=== PATIENT | male | born 1940 | race Caucasian/White ===

== ENCOUNTER 2017-12-11 08:20 | Day surgery (SDC) | payer MEDICARE, OTHER ==
[2017-12-10 15:08] LABS: BASOPHILS 0.1 % (0-2); HEMATOCRIT 37.7 % (42.0-54.0); HEMOGLOBIN 12.5 g/dL (13.5-17.5); IMMATURE GRANULOCYTES 0.2 % (0-5); LYMPHOCYTES 24.3 % (15-50); MCH 33.3 pg (26.0-34.0); MCHC 33.2 g/dL (31.0-37.0); MCV 100.5 fL (80.0-100.0); MEAN PLATELET VOLUME 10.4 fL (7.4-10.4); NEUTROPHILS 64.4 % (40-80); PLATELET COUNT 133 10x3/uL (130-400); RBC 3.75 10x6/uL (4.20-6.10); RDW 13.2 % (11.5-14.5); WBC 8.1 10x3/uL (4.8-10.8)
[~2017-12-11] VITALS: Ht 172.7 cm; Wt 90.7 kg
--- NOTE | ~2017-12-11 | OP ---
PATIENT NAME: SVEN PIERRE MEDICAL RECORD: [id number] :38 LOCATION:[facility] ADMISSION DATE: SURGEON: LUIS BELTRAN DPM DATE OF OPERATION: 12/11/2017 PREOPERATIVE DIAGNOSIS: Gouty tophi, left third toe. POSTOPERATIVE DIAGNOSIS: Gouty tophi, left third toe. PROCEDURE: Incision and drainage of all gouty tophi and devitalized tissue, left third digit. ANESTHESIA: General with local infiltrate, 5 cc total on the left third digit. HEMOSTASIS: Left ankle tourniquet at 250 mmHg. PREOPERATIVE DETAILS: The patient was taken to the OR and placed on the operating table in a supine position. This was followed by induction of general anesthesia and infiltration of local anesthetic. The left extremity was then prepped and draped in usual aseptic technique followed by exsanguination and inflation of tourniquet. A 15 blade was used to create a transverse incision over the dorsal aspect of the DIPJ of the left third digit. Dissection then involved freeing all the gouty tophaceous deposits on the dorsal aspect of the DIPJ area. They were removed. Some was sent to pathology for gross and micro identification. Once all the gouty tophi was removed, the wound was flushed and the skin was closed with 4-0 Rapide in a simple interrupted technique followed by Dermabond, Adaptic, 4 x 4 and conform were used to dress the wound followed by Coban. Tourniquet was deflated. POSTOPERATIVE DETAILS: The patient tolerated the procedure well and left the OR with vital signs stable and vascular status at preoperative levels. The patient was transported to recovery per anesthesia in stable condition. TRANSINT:[id number] Voice Confirmation ID: [id number] DOCUMENT ID: [id number] LUIS BELTRAN DPM at 1025 CC: [id number] DICTATION DATE: 12/11/17 1354 CUT PRESS OPERATOR: 12/11/17 1350 [facility] 12/11/[address] [address]
[~2017-12-11 08:20] MED LIST: CILOSTAZOL50 MG PO; ISOSORBIDE MONO30 M1 PO; TOPROL XL25 MG; ZOCOR40 MG PO
[2017-12-11 08:40] VITALS: BP 129/84; Ht 172.7 cm; Wt 90.7 kg
== END 2017-12-11 16:45 | disposition home or self-care (01) ==
LOC: D.OPS 08:20 → D.PAN 10:30 → D.OPS 13:00 → D.PAN 12-25 07:00 → D.OPS 12-25 07:00
PROVIDERS: Anesthesiology
DX: M1A.0721 Idiopathic chronic gout, left ankle and foot, with tophus (tophi) (principal); Z01.812 Encounter for preprocedural laboratory examination

== ENCOUNTER 2018-06-24 06:11 | Inpatient (IN) | payer MEDICARE, OTHER ==
[~2018-06-24] VITALS: Ht 172.7 cm; Wt 89.1 kg
--- NOTE | ~2018-06-24 | HEMODYNAMI ---
PATIENT:SVEN PIERRE MEDICAL RECORD: [id number] : 38 LOCATION:[address] ADMISSION DATE: 06/24/18 Generatedon:06/25/20189:02 Patient name: SVEN PIERRE Patient #: [id number] SSN: DO B: 1940 Date of study: 06/25/2018 Page: Of Hemodynamic Procedure Report Patient Data Patient Demographics Procedure consent was obtained First Name: SVEN Gender: Male Last Name: IGNACIO : 1940 Middle Initial: T Age: 78 year(s) Patient #: [id number] Race: Additional ID: [id number] Contact details Address: [address] [place] [address] State: [place] City: [facility] Zip code: [address] Admission Admission Data Admission Date: 06/24/2018 Admission Time: 6:52 Room #: 2119 Procedure Procedure Types Cath Procedure Diagnostic Procedure LHC LH w/Coronaries Sedation Charges Moderate Sedation up to 15 minutes Procedure Description Procedure Date Procedure Date: 06/25/2018 Procedure Start Time: 8:34 Procedure End Time: 8:59 Procedure Staff Name Function Kevin Croft MD Performing Physician Farhana Rogers RT Monitor Madhuri Baker RT Scrub Aguila Herzog RN Nurse Procedure Data Cath Procedure Fluoroscopy Diagnostic fluoroscopy Total fluoroscopy Time: 6.6 time: 6.6 min min Diagnostic fluoroscopy Total fluoroscopy dose: dose: 1046 mGy 1046 mGy Contrast Material Contrast Material Type Amount (ml) Isovue 300 87 Entry Location Entry Primary Successful Side Size Upsize Upsize Entry Closure Succes sful Closure Location (Fr) 1 (Fr) 2 (Fr) Remarks Device Remarks Femoral Right 5 Fr 6 Fr 7 Fr Exoseal artery Short Long Estimated blood loss: 5 ml Diagnostic catheters Device Type Used For End Catheter Placement MULTIPACK Pigtail 5 Fr Left Coronary catheter Angiography MULTIPACK JL 4.0 5Fr Left Coronary catheter Angiography MULTIPACK 3DRC 5Fr Right Coronary catheter Angiography Procedure Complications No complications Procedure Medications Medication Administration Route Dosage 0.9% NaCl I.V. 100 ml/hr Oxygen etCO2 Nasal cannula 2 l/min Heparin Flush Bag added to field 2 bags (1000units/500ml NS) Lidocaine 2% added to field 20 Oxygen NRB 15 l/min Versed I.V. 1 mg Fentanyl I.V. 25 mcg Fentanyl I.V. 25 mcg Heparin Bolus I.V. 4000 units Hemodynamics Rest Heart Rate: 89 (bpm) Snapshots Pre Cath Intra NCS Post Cath Vital Signs Time Heart Resp SPO2 etCO2 NIBP (mmHg) Rhythm Pain Sedation Rate (ipm) (%) (mmHg) Status Level (bpm) 8:09:51 82 24 94 9.7 126/69(103) A-Fib 0 (11) 10(A) , No pain 8:14:03 85 25 93 0 120/70(92) A-Fib 0 (11) 10(A) , No pain 8:18:14 83 21 92 0 109/60(86) A-Fib 0 (11) 10(A) , No pain 8:22:18 85 20 92 0 103/75(84) A-Fib 0 (11) 10(A) , No pain 8:26:22 88 36 97 0 120/67(89) A-Fib 0 (11) 10(A) , No pain 8:30:30 81 21 99 0 113/74(90) A-Fib 0 (11) 10(A) , No pain 8:34:32 80 27 99 0 123/81(90) A-Fib 0 (11) 10(A) , No pain 8:38:39 87 23 99 0 123/75(96) A-Fib 0 (11) 10(A) , No pain 8:42:49 81 24 99 0 113/70(83) A-Fib 0 (11) 10(A) , No pain 8:46:53 81 18 98 0 116/77(91) A-Fib 0 (11) 10(A) , No pain 8:50:57 96 16 99 0 115/81(101) A-Fib 0 (11) 10(A) , No pain 8:55:05 88 27 99 0 118/71(95) A-Fib 0 (11) 10(A) , No pain 8:59:10 87 26 98 0 125/78(111) A-Fib 0 (11) 10(A) , No pain Medications Time Medication Route Dose Verified Delivered Reason Notes Effectiveness by by 8:11:07 0.9% NaCl I.V. 100 Aguila Aguila Per physician ml/hr Rosenda Herzog RN RN 8:11:23 Oxygen etCO2 2 Aguila Aguila Per physician Nasal l/min Rosenda Herzog cannula RN RN 8:11:54 Heparin Flush added 2 Aguila Aguila used for Bag to bags Rosenda Herzog procedure (1000units/500ml field RN RN NS) 8:12:05 Lidocaine 2% added 20ml Aguila Aguila for local to vial Rosenda Herzog anesthetic field RN RN 8:27:38 Oxygen NRB 15 Aguila Aguila for low 02 sats l/min Rosenda Herzog RN RN 8:30:26 Versed I.V. 1 mg Aguila Aguila for sedation Rosenda Herzog RN RN 8:30:37 Fentanyl I.V. 25 Aguila Aguila for sedation mcg Rosenda Herzog RN RN 8:35:04 Fentanyl I.V. 25 Aguila Aguila for sedation mcg Rosenda Herzog RN RN 8:49:14 Heparin Bolus I.V. 4000 Aguila Aguila for units Rosenda Herzog anticoagulation RN supervisor special services Log Time Note 7:34:46 Informed consent obtained and on chart 7:34:50 Diagnostic Cath Status : Elective 7:35:13 Farhana Rogers RT(R) sent for patient. Start room use. 7:35:14 Time tracking: Regular hours (M-F 7:00 - 5:00) 7:35:18 Plan of Care:Hemodynamics will remain stable., Cardiac rhythm will remain stable., Comfort level will be maintained., Respiratory function will remain adequate., Patient/ family verbilizes understanding of procedure., Procedure tolerated without complication., Recovers from procedure without complications.. 7:59:28 Patient received from PCU to CCL 2 Alert and oriented. Tansferred to table in Supine position. 7:59:29 Warm blankets applied, and diamante hugger turned on for patient comfort. 7:59:29 Correct patient and procedure confirmed by team. 7:59:30 ECG and BP/O2 sat monitors applied to patient. 7:59:32 Full Disclosure recording started 8:08:49 Baseline sample Acquired. 8:08:49 Vital chart was started 8:08:54 Rhythm: sinus rhythm 8:09:05 H&P Date Dictated: 06/25/2018 New H&P dictated by physician.. 8:09:06 Pre-procedure instructions explained to patient. 8:09:07 Pre-op teaching completed and patient verbalized understanding. 8:09:09 Family in waiting room. 8:09:10 Patient NPO since Midnight. 8:09:40 Is the patient allergic to Iodine/contrast media? No. 8:09:42 Was the patient premedicated? No 8:09:49 Is patient on blood thinner?Yes 8:09:53 ACC The patient was administered the following blood thiners within the last 24 hours: ACCPlavix 8:10:04 Patient diabetic? No. 8:10:08 Previous problem with sedation/anesthesia? No ? 8:10:09 Snore? Yes 8:10:10 Sleep apnea? No 8:10:11 Deviated septum? No 8:10:12 Opens mouth fully? Yes 8:10:12 Sticks out tongue? Yes 8:10:14 Airway obstruction? No ? 8:10:17 Dentures? No ? 8:10:22 Pre procedure: right dorsailis pedis pulse 2+ Normal; easily identifiable; not easily obliterated 8:10:24 Pre procedure: left dorsailis pedis pulse 2+ Normal; easily identifiable; not easily obliterated 8:10:27 Patient pain scale 0/10 ?. 8:10:32 IV patent on arrival in left forearm with 0.9% NaCl at [facility]. 8:10:34 Lab results completed and on chart. 8:10:37 Right groin area was prepped with chlora-prep and draped in sterile fashion 8:10:38 Alarms reviewed by R. N. 8:10:39 Sharps counted by scrub and verified by R.N. 8:11:07 0.9% NaCl 100 ml/hr I.V. was administered by Aguila Herzog RN; Per physician; 8:11:23 Oxygen 2 l/min etCO2 Nasal cannula was administered by Aguila Herzog RN; Per physician; 8:11:54 Heparin Flush Bag (1000units/500ml NS) 2 bags added to field was administered by Aguila Herzog RN; used for procedure; 8:12:05 Lidocaine 2% 20ml vial added to field was administered by Aguila Herzog RN; for local anesthetic; 8:17:21 Zero performed for pressure channel P1 8:27:38 Oxygen 15 l/min NRB was administered by Aguila Herzog RN; for low 02 sats; 8:28:21 Physician arrived 8:28:21 --------ALL STOP TIME OUT------ 8:28:22 Final Timeout: patient, procedure, and site verified with staff and physician. All members of the team are in agreement. 8:28:24 Right groin site verified by team. 8:28:26 Physical assessment completed. ASA score P 2 - A patient with mild systemic disease as per Kevin Croft MD. 8:28:31 Sedation plan: IV Moderate Sedation Medication:Versed, Fentanyl 8:28:40 Use device set Femoral Dx 8:28:41 ACIST Syringe (08710) opened to sterile field. 8:28:41 Bag Decanter (2002S) opened to sterile field. 8:28:42 Medline Cath Pack (PSLM00503) opened to sterile field. 8:28:42 DIAGNOSTIC WIRE .035 260cm J wire (303046) opened to sterile field. 8:28:44 ACIST Hand Control (00473) opened to sterile field. 8:28:44 ACIST Manifold (42266) opened to sterile field. 8:28:45 DIAGNOSTIC Multipack 5Fr catheter set (JS0452) opened to sterile field. 8:28:45 Tegaderm 4 x 4 (1626W) opened to sterile field. 8:28:46 SHEATH 5FR [place] (ICP378) opened to sterile field. 8:30:26 Versed 1 mg I.V. was administered by Aguila Herzog RN; for sedation; 8:30:37 Fentanyl 25 mcg I.V. was administered by Aguila Herzog RN; for sedation; 8:34:44 Procedure started. 8:34:47 Local anesthetic to right femoral artery with Lidocaine 2% by Kevin Croft MD.INITIAL ACCESS ONLY 8:34:58 A 5 Fr sheath was inserted into the Right Femoral artery 8:35:04 Fentanyl 25 mcg I.V. was administered by Aguila Herzog RN; for sedation; 8:39:18 A MULTIPACK Pigtail 5 Fr catheter was advanced over the wire and used for Left Coronary Angiography. 8:41:14 pigtail removedl; unable to cross valve 8:41:19 A MULTIPACK JL 4.0 5Fr catheter was advanced over the wire and used for Left Coronary Angiography. 8:42:27 LCA angiography performed. 8:42:30 Injector settings: Ml/sec: 3, Volume: 6, 8:43:49 Catheter removed. 8:43:55 A MULTIPACK 3DRC 5Fr catheter was advanced over the wire and used for Right Coronary Angiography. 8:45:14 Catheter removed. 8:45:37 SHEATH 6FR [place] (WZI131) opened to sterile field. 8:45:44 INFLATOR Merit BasixCompak (WZ7356) opened to sterile field. 8:45:55 FIELDER XT 190cm guidewire ([id number]) opened to sterile field. 8:46:23 GUIDE 6FR HS II catheter (RC1NCDZ) opened to sterile field. 8:46:31 Catheter removed. 8:46:32 Proceeding to intervention. 8:46:54 Sheath upsized to a 6 Fr Short. 8:47:06 6 Fr hs 2 guide catheter was inserted over the wire 8:47:36 Guide Catheter removed. unable to cannulate vessel. 8:47:44 SHEATH 7FR Destination (RSR04) opened to sterile field. 8:48:06 Sheath upsized to a 7 Fr Long. 8:48:51 GUIDE 7FR AR 2.0 catheter (IC2LP33) opened to sterile field. 8:49:02 7 Fr ar 2 guide catheter was inserted over the wire 8:49:14 Heparin Bolus 4000 units I.V. was administered by Aguila Herzog RN; for anticoagulation; 8:51:18 fielder wire advanced. 8:54:13 Wire removed. unable to cross lesion. 8:54:27 Guide catheter removed. 8:54:35 SHEATH 7FR [place] (UAW870) opened to sterile field. 8:54:36 7F Destination exchanged for 7F [place] 8:55:52 Sheath removed intact; hemostasis achieved with Exoseal to the Right Femoral artery. 8:56:10 Procedure ended.(Physican Out) 8:56:29 Fluoroscopy time 06.60 minutes. 8:56:34 Fluoroscopy dose: 1046 mGy 8:56:34 Flurop Dose total: 1046 8:56:36 Contrast amount:Isovue 300 87ml. 8:56:38 Sharps counted by scrub and verified by R.N. 8:56:54 EXOSEAL 7Fr (EX700) opened to sterile field. 8:58:22 Insertion/operative site no bleeding no hematoma. 8:58:24 Post-op/insertion site Right Femoral artery dressed using a 4 x 4 and Tegaderm. 8:58:27 Post right femoral artery:stable 8:58:28 Post Procedure Pulses reassessed and unchanged 8:58:31 Post procedure rhythm: unchanged. 8:58:34 Estimated blood loss: 5 ml 8:58:35 Post procedure instruction explained to patient.Patient verbalizes understanding. 8:58:35 Patient needs reinforcement of post procedure teaching. 8:58:53 Procedure type changed to Cath procedure, Diagnostic procedure, LHC, LHC w/Coronaries, Sedation Charges, Moderate Sedation up to 15 minutes 8:58:54 Procedure and supply charges have been captured, reviewed, submitted and are correct. 8:58:57 Procedure Complication : No complications 8:58:59 Vital chart was stopped 8:59:00 See physician's report for complete and final results. 8:59:07 Report given to Med II. 8:59:09 Patient transfered to Med II with Stretcher. 8:59:11 Procedure ended. 8:59:11 Full Disclosure recording stopped 8:59:15 End room use (Document Last) Device Usage Item Name Manufacture Quantity Catalog Hospital Part Current Minimal L ot# / Number Charge Number Stock Stock Serial# Code ACIST Acist 1 14714 407474 043939 525789 20 Syringe Medical (09739) Systems Inc Bag Microtek 1 053094 72743 833541 5 Decanter Medical Inc. () Medline Medline 1 [id number] 380955 17890 413241 5 Cath Pack ([id number]) DIAGNOSTIC St Robert 1 532496 055003 410425 572514 30 WIRE .035 260cm J wire (950016) ACIST Hand Acist 1 67629 431911 382044 702721 5 Control Medical (77684) Systems Inc ACIST Acist 1 98978 811998 338031 060546 5 Manifold Medical (13470) Systems Inc DIAGNOSTIC Cardinal 1 WB8863 493947 79109 305419 30 Multipack Health 5Fr catheter set (TN1731) Tegaderm 4 3M 1 1626W 066668 853850 436238 5 x 4 (1626W) SHEATH 5FR Terumo 1 BOX925 580015 015645 019207 5 [place] (TCF523) MULTIPACK Cardinal 1 877816 5 Pigtail 5 Health Fr catheter MULTIPACK Cardinal 1 975964 5 JL 4.0 5Fr Health catheter MULTIPACK Cardinal 1 782446 5 3DRC 5Fr Health catheter SHEATH 6FR Terumo 1 JWQ625 877790 014454 215284 40 [place] (QUP706) INFLATOR [facility] 1 NL1114 336008 512343 792600 15 [facility] Medical BasixCompak (IA8674) FIELDER XT Lamas 1 [id number] 381561 25570 246296 5 190cm Vascular guidewire ([id number]) GUIDE 6FR Medtronic 1 [id number] 012693 12898 716289 1 HS II catheter ([id number]) SHEATH 7FR Terumo 1 RSR04 580202 440581 357018 5 Destination (RSR04) GUIDE 7FR Medtronic 1 QO2TE79 329826 659465 851028 0 AR 2.0 catheter (JN6CL69) SHEATH 7FR Terumo 1 JXR094 433391 899647 253519 5 [place] (UWB476) EXOSEAL 7Fr Cardinal 1 EX700 994357 506679 333591 5 (EX700) Health Signature Audit [place] Stage Time Signature Unsigned Intra-Procedure 06/25/2018 Farhana Rogers 9:02:21 AM RT(R) Signatures Monitor : Farhana Rogers RT Signature : Date : Time : [facility] [address] [place] [address]
[2018-06-24] MEDS ORDERED: XARELTO15 MG PO (06:15)
[2018-06-24] MEDS ORDERED: BETAPACE 80 MG80 MG PO (06:15)
[2018-06-24 06:30] LABS: BASOPHILS 0.2 % (0-2); EOSINOPHILS 1.1 % (0-7); HEMATOCRIT 41.6 % (42.0-54.0); HEMOGLOBIN 13.4 g/dL (13.5-17.5); IMMATURE GRANULOCYTES 0.3 % (0-5); LYMPHOCYTES 9.4 % (15-50); MCH 33.2 pg (26.0-34.0); MCHC 32.2 g/dL (31.0-37.0); MEAN PLATELET VOLUME 11.2 fL (7.4-10.4); MONOCYTES 6.2 % (2-11); NEUTROPHILS 82.8 % (40-80); PLATELET COUNT 150 10x3/uL (130-400); RBC 4.04 10x6/uL (4.20-6.10); RDW 14.8 % (11.5-14.5); WBC 12.5 10x3/uL (4.8-10.8)
[2018-06-24 06:44] LABS: ALBUMIN 3.5 g/dL (3.4-5.0); ALKALINE PHOSPHATASE 47 U/L (46-116); ALT (SGPT) 32 U/L (10-68); BILIRUBIN - TOTAL 0.88 mg/dL (0.2-1.3); CALC OSMOLALITY 288 mosm/kg (275-300); CALCIUM 9.1 mg/dL (8.5-10.1); CARBON DIOXIDE 27.2 mmol/L (21.0-32.0); CHLORIDE - SERUM 105 mmol/L (98-107); CREATININE - SERUM 1.9 mg/dL (0.6-1.3); GLUCOSE 148 mg/dL (74-106); POTASSIUM - SERUM 4.7 mmol/L (3.5-5.1); PROTEIN - SERUM 7.1 g/dL (6.4-8.2); SODIUM 141 mmol/L (136-145); UREA NITROGEN 27 mg/dL (7-18); eGFR NON AFRICAN AMERICAN 36 mL/min (90-120)
[2018-06-24 06:50] LABS: APTT 36.9 SECONDS (22.8-39.4); INR 1.85 (0.85-1.17); PROTIME 20.7 SECONDS (11.6-15.0)
[2018-06-24 06:58] LABS: D-DIMER-QUANTITATIVE 7.12 ug/mLFEU (0.20-0.54)
[2018-06-24 07:00] LABS: CKMB 2.3 U/L (0.0-3.6); CREATINE KINASE 91 UL (21-232); PRO BNP 3421 pg/mL (0-450)
[2018-06-24 07:02] LABS: TROPONIN-I 0.214 ng/mL (0.000-0.060)
--- NOTE | 2018-06-24 07:11 | NUR ---
HAND-OFF REPORT RECEIVED FROM OFF GOING NURSE SILVIANO DARLING RN
[2018-06-24 07:31] VITALS: BP 113/58
--- NOTE | 2018-06-24 07:54 | NUR ---
PATIENT IS SITTING SEMI FOWLERS, CALL LIGHT IN REACH. NO SIGNS OF DISTRESS. BIPAP IN PLACE. PT AWARE OF NPO STATUS. ED AUTOMATIC TIRE TESTER ASKED TO NOTIFY DR COBB OF ORDERED CONSULT. WILL CONTINUE TO MONITOR.
--- NOTE | 2018-06-24 08:05 | NUR ---
ORDERED ZITHROMAX TO BE ADMINISTERED ONCE ORDERED ROCEPHIN IS GIVEN.
[2018-06-24 08:30] VITALS: BP 129/77
--- NOTE | 2018-06-24 08:37 | NUR ---
ORDERED ROCEPHIN INITIATED AT 0800 COMPLETE AT 0830.
--- NOTE | 2018-06-24 09:16 | NUR ---
VERIFIED WITH STIFF LEG DERRICK OPERATOR THAT PT WOULD HAVE ANGIOGRAM TOMORROW, NOT TODAY PREVIOUSLY DISCUSSED. PER JANET POND, DR. COBB STATES THAT PT'S XARELTO SHOULD BE STOPPED AND PT SHOULD HAVE PLAVIX 600MG PO AT THIS TIME.
[2018-06-24 09:30] VITALS: BP 132/66
--- NOTE | 2018-06-24 09:46 | NUR ---
ORDERED ZITHROMAX INITIATED AT 0836, COMPLETE AT 0940.
[2018-06-24 10:30] VITALS: BP 123/66
--- NOTE | 2018-06-24 10:30 | NUR ---
RT REMOVED BIPAP AND PLACED PT ON NC AT 4LPM.
[2018-06-24 13:02] VITALS: BP 128/75
--- NOTE | 2018-06-24 14:02 | NUR ---
LYING QUIETLY WITH EYES CLOSED. TELEMERTY SHOWS SR 82. AT BEDSIDE.
--- NOTE | 2018-06-24 16:51 | NUR ---
ASSESSMENT COMPLETE RESP UNLABORED SKIN W/D COLOR WNL SALIONE LOCK INTACT TO LT HAND WITHOUT REDNESS OR EDEMA TELEMETRY INTACT SR WITH PACs RATE 100
--- NOTE | 2018-06-24 17:33 | NUR ---
HOB UP FOR DIET. TELEMERTY SHOWS CAF. DUMONT DRAINING WELL. DENIES ANY NEEDS. CALL LIGHT IN REACH
[2018-06-24 19:00] VITALS: BP 108/63
--- NOTE | 2018-06-24 20:21 | NUR ---
RESUMING PATIENT CARE. PATIENT IS ALERT AND ORIENTED RESTING COMFORTABLY IN BED. PATIENT ON 3.5L NC. RESPIRATIONS ARE EVEN AND UNLABORED. NO S/S OF DISTRESS. NO C/O PAIN. BETAPACE HELD AND PLETAL NO AVAILABLE. PATIENT VERBALIZED ALL NEEDS MET AT THIS TIME. CALL LIGHT WITHIN. WILL CPOC.
[2018-06-25] VITALS: BP 115/70
[2018-06-25 04:00] VITALS: BP 109/63
[2018-06-25 06:25] LABS: BASOPHILS 0 % (0-2); EOSINOPHILS 0 % (0-7); HEMATOCRIT 42.6 % (42.0-54.0); HEMOGLOBIN 13.8 g/dL (13.5-17.5); IMMATURE GRANULOCYTES 0.2 % (0-5); LYMPHOCYTES 6.1 % (15-50); MCH 33.1 pg (26.0-34.0); MCHC 32.4 g/dL (31.0-37.0); MCV 102.2 fL (80.0-100.0); MEAN PLATELET VOLUME 11.4 fL (7.4-10.4); MONOCYTES 5.3 % (2-11); NEUTROPHILS 88.4 % (40-80); PLATELET COUNT 176 10x3/uL (130-400); RBC 4.17 10x6/uL (4.20-6.10); RDW 14.8 % (11.5-14.5); WBC 15.5 10x3/uL (4.8-10.8)
[2018-06-25 07:08] LABS: ALBUMIN 3.5 g/dL (3.4-5.0); ANION GAP 15.5 mmol/L (8-16); BILIRUBIN - TOTAL 0.65 mg/dL (0.2-1.3); CALCIUM 9.1 mg/dL (8.5-10.1); CARBON DIOXIDE 29.6 mmol/L (21.0-32.0); CREATININE - SERUM 1.9 mg/dL (0.6-1.3); POTASSIUM - SERUM 4.1 mmol/L (3.5-5.1); PROTEIN - SERUM 7.3 g/dL (6.4-8.2)
--- NOTE | 2018-06-25 07:15 | NUR ---
ASSESSMENT DONE. DENIES NEEDS.
--- NOTE | 2018-06-25 08:00 | NUR ---
TO CUSTOM MILLER PER BED
--- NOTE | 2018-06-25 09:30 | NUR ---
RETURN FROM JOB SUPERINTENDENT PER BED. RT GROIN DRSG C/D/I, PULSE PALP. AT SIDE. BIPAP ON , CM ON SHOWING SR WITH PAC RATE OF 75.
--- NOTE | 2018-06-25 10:12 | NUR ---
RESTS IN BED WITH C-PAP ON. IV DICK. AT BS. WILL CONT. PLAN OF CARE.
[2018-06-25 12:02] VITALS: BP 117/67
[2018-06-25 16:14] VITALS: BP 109/64
--- NOTE | 2018-06-25 16:57 | NUR ---
AT SIDE. WITHOUT CHANGES OR DISTRESS NOTED AT THIS TIME. DENIES NEEDS.
[2018-06-25 18:56] VITALS: Ht 172.7 cm; Wt 89.1 kg
--- NOTE | 2018-06-25 19:30 | NUR ---
PT RESTING IN BED, NAME AND DATE PLACED ON BOARD. PT ON 3L O2 NC. NOURISHMENT GIVEN. RIGHT GROIN DRSG CDI. PT BEDLOW AND CALL LIGHT IN REACH. PT WILL CALL FOR ASSIST WHEN NEEDED. WILL CPOC
[2018-06-25 20:00] VITALS: BP 101/48
--- NOTE | 2018-06-25 20:59 | NUR ---
PT UP TO CHAIR, CHANGED SHEETS AND PAD. PLACED NEW STAT LOCK FOR DUMONT,. PT HAD 2000 ML OF OUTPUT ON DUMONT. PINK,CLOUDY URINE. PT DENIES ANY NEEDS. ASSISTED BACK TO BED. PULSES +2, RIGHT GROIN CDI. WILL CPOC
[2018-06-26] VITALS: BP 99/57
--- NOTE | 2018-06-26 00:07 | NUR ---
PT RESTING IN BED. PULSES +2. PT RIGHT GROIN CDI. PT HAS NO S/S OF DISTRESS. DENIES ANY NEEDS. PT WILL CALL FOR ASSIST WHEN NEEDED. WILL CPOC
--- NOTE | 2018-06-26 01:53 | NUR ---
PT RESTING IN BED. VIBRAMYCIN INFUSING. PT DENIES ANY NEEDS. NO S/S OF DISTRESS. BEDLOW AND CALL LIGHT IN REACH. WILL CPOC
[2018-06-26 04:00] VITALS: BP 103/57
[2018-06-26 07:07] LABS: ALBUMIN 3.3 g/dL (3.4-5.0); ANION GAP 13.2 mmol/L (8-16); CALCIUM 8.9 mg/dL (8.5-10.1); CARBON DIOXIDE 31.6 mmol/L (21.0-32.0); CREATININE - SERUM 1.8 mg/dL (0.6-1.3); POTASSIUM - SERUM 3.8 mmol/L (3.5-5.1); PROTEIN - SERUM 6.9 g/dL (6.4-8.2)
--- NOTE | 2018-06-26 07:15 | NUR ---
ASSESSMENT DONE. DENIES NEEDS.
[2018-06-26 07:21] LABS: BILIRUBIN - TOTAL 0.52 mg/dL (0.2-1.3)
[2018-06-26 08:12] VITALS: BP 117/72
--- NOTE | 2018-06-26 10:06 | NUR ---
RESP UL ON . TIM INTACT. RESTS WITH EYES COSED. CALL LIGHT IN REACH.
[2018-06-26 11:52] VITALS: BP 104/52
[2018-06-26] MEDS ORDERED: LASIX40 MG PO (12:24)
--- NOTE | 2018-06-26 12:54 | NUR ---
IV, TELEMETRY AND TIM DCD FOR DC. [id number] HE DOES NOT QUALIFY FOR HOME 02. WILL CONT. TO MONITOR.
--- NOTE | 2018-06-26 12:57 | MORECARE ---
CASE MANAGEMENT DISCHARGE SUMMARY PATIENT: SVEN PIERRE UNIT: [id number] ADM DATE: 06/25/18 AGE: 78 : 39 SEX: M ROOM/BED: D.2112 AUTHOR: LEOBARDODOC PHYSICIAN: REFERRING PHYSICIAN: SHAHRZAD LAM DO DATE OF SERVICE: 06/26/18 Discharge Plan Patient Name: SVEN PIERRE Facility: [facility]:[place] : 1940 Planned Disposition: Home Anticipated Discharge Date: Discharge Date: Expected LOS: Initial Reviewer: [email or web address] Initial Review Date: 06/26/2018 Generated: 06/26/18 1:56 pm Comments DCP- Discharge Planning Updated by [email or web address]: Germán Tipton on 06/26/18 11:[address] Patient Name: SVEN PIERRE Admission Status: ER Accout number: [id number] Admission Date: 06-25-2018 : 1940 Admission Diagnosis: Attending: SHAHRZAD LAM Current LOS: 1 Anticipated DC Date: Planned Disposition: Home Primary Insurance: MEDICARE A & B Discharge Planning Comments: CM MET WITH PT AND SPOUSE IN ROOM TO DISCUSS DISCHARGE PLANNING AND NEEDS. SVEN PIERRE provided verbal consent to discuss current and ongoing needs with/in the presence of: SPOUSE, SANDRA. PT REPORTS LIVING AT HOME INDEPENDENTLY WITH SPOUSE. PT HAS ROLLING WALKER WITH SEAT AND BRAKES, PT WOULD GET MINOR EQUIPMENT IF NEEDED FROM THE [facility] AND HAS NO PREFERRED PROVIDER FOR MEDICAL EQUIPMENT. PT HAS NO OUTSIDE SERVICES ASSISTING IN THE HOME. CM DISCUSSED AVAILABILITY OF HOME HEALTH, REHAB SERVICES AND MEDICAL EQUIPMENT. PT DENIES DISCHARGE NEEDS AT THIS TIME , REPORTS HIS SPOUSE WILL PICK HIM UP FOR DISCHARGE HOME. IMPORTANT MESSAGE FROM MEDICARE PROVIDED AND EXPLAINED. CM PROVIDED AND DISSCUSSED ADVANCED DIRECTIVE INFORMATION REQUESTED BY PT AND SPOUSE. PT PLANS TO DISCHARGE HOME WITH SPOUSE, SPOUSE TO TRANSPORT. NO ANTICIPATED DISCHARGE NEEDS AT THIS TIME. CM TO FOLLOW AND ASSIST NEEDED. Joiner: Germán Tipton DCPIA - Discharge Planning Initial Assessment Updated by [email or web address]: Germán Tipton on 06/26/18 12:53 pm * Is the patient Alert and Oriented? Yes * How many steps to enter\exit or inside your home? 2 OUTSIDE * PCP DR. TODD * Pharmacy [facility] * Preadmission Environment Home with Family * ADLs Independent * Equipment Rolling Walker * Other Equipment WALKER WITH SEAT AND BRAKES [employer]- MEDICAL EQUIPMENT PROVIDER * List name and contact numbers for known caregivers / representatives who currently or will assist patient after discharge: MICHAEL VILLANUEVA, , * Verbal permission to speak to the caregivers and representatives has been obtained from the patient. Yes * Community resources currently utilized None * Please name any agencies selected above. NONE * Additional services required to return to the preadmission environment? No * Can the patient safely return to the preadmission environment? Yes * Has this patient been hospitalized within the prior 30 days at any hospital? No Coverage Notice Reviewer: [email or web address] Helder Tipton Notice Issued Date-Time: 06/26/2018 11:25 Notice Type: IM Discharge Notice Notice Delivered To: Patient Relationship to Patient: Rubbing Bed Operator Name: Delivery Method: HAND - Hand Delivered Ludmila Days: Prior Verbal Notification: Recipient Understood Notice: Yes Recipient Signature: Yes Med Rec Note Co-signed by Attending: Coverage Notice Comment: Patient Name: SVEN PIERRE Page [phone] at 1257 All edits/amendments must be made on the electronic document DICTATION DATE: 06/26/181255 CLOTH LAYER: SANDOR 06/26/181255 RPT#: [id number] DC DATE: STATUS: ADM IN [facility] [address] [place] [address] END OF REPORT
--- NOTE | 2018-06-26 15:05 | MORECARE ---
CASE MANAGEMENT DISCHARGE SUMMARY PATIENT: SVEN PIERRE UNIT: [id number] ADM DATE: 06/25/18 AGE: 78 : 39 SEX: M ROOM/BED: D.2116 AUTHOR: MARIBELL BOOTH PHYSICIAN: REFERRING PHYSICIAN: SHAHRZAD LAM DO DATE OF SERVICE: 06/26/18 Discharge Plan Patient Name: SVEN PIERRE Facility: [facility]:[place] : 1940 Planned Disposition: Home Anticipated Discharge Date: 06/26/18 Discharge Date: Expected LOS: 1 Initial Reviewer: [email or web address] Initial Review Date: 06/26/2018 Generated: 06/26/18 4:05 pm Comments DCP- Discharge Planning Updated by NAVA: Germán Tipton on 06/26/18 11:[address] Patient Name: SVEN PIERRE Admission Status: ER Accout number: [id number] Admission Date: 06-25-2018 : 1940 Admission Diagnosis: Attending: SHAHRZAD LAM Current LOS: 1 Anticipated DC Date: Planned Disposition: Home Primary Insurance: MEDICARE A & B Discharge Planning Comments: CM MET WITH PT AND SPOUSE IN ROOM TO DISCUSS DISCHARGE PLANNING AND NEEDS. SVEN PIERRE provided verbal consent to discuss current and ongoing needs with/in the presence of: SPOUSE, SANDRA. PT REPORTS LIVING AT HOME INDEPENDENTLY WITH SPOUSE. PT HAS ROLLING WALKER WITH SEAT AND BRAKES, PT WOULD GET MINOR EQUIPMENT IF NEEDED FROM THE [facility] AND HAS NO PREFERRED PROVIDER FOR MEDICAL EQUIPMENT. PT HAS NO OUTSIDE SERVICES ASSISTING IN THE HOME. CM DISCUSSED AVAILABILITY OF HOME HEALTH, REHAB SERVICES AND MEDICAL EQUIPMENT. PT DENIES DISCHARGE NEEDS AT THIS TIME , REPORTS HIS SPOUSE WILL PICK HIM UP FOR DISCHARGE HOME. IMPORTANT MESSAGE FROM MEDICARE PROVIDED AND EXPLAINED. CM PROVIDED AND DISSCUSSED ADVANCED DIRECTIVE INFORMATION REQUESTED BY PT AND SPOUSE. PT PLANS TO DISCHARGE HOME WITH SPOUSE, SPOUSE TO TRANSPORT. NO ANTICIPATED DISCHARGE NEEDS AT THIS TIME. CM TO FOLLOW AND ASSIST NEEDED. Transonic Engineer: Germán Tipton DCPIA - Discharge Planning Initial Assessment Updated by [id number]: Germán Tipton on 06/26/18 12:53 pm * Is the patient Alert and Oriented? Yes * How many steps to enter\exit or inside your home? 2 OUTSIDE * PCP DR. TODD * Pharmacy [facility] * Preadmission Environment Home with Family * ADLs Independent * Equipment Rolling Walker * Other Equipment WALKER WITH SEAT AND BRAKES [employer]- MEDICAL EQUIPMENT PROVIDER * List name and contact numbers for known caregivers / representatives who currently or will assist patient after discharge: SANDRA PIERRE, SPOUSE, , * Verbal permission to speak to the caregivers and representatives has been obtained from the patient. Yes * Community resources currently utilized None * Please name any agencies selected above. NONE * Additional services required to return to the preadmission environment? No * Can the patient safely return to the preadmission environment? Yes * Has this patient been hospitalized within the prior 30 days at any hospital? No Coverage Notice Reviewer: [email or web address] Helder Tipton Notice Issued Date-Time: 06/26/2018 11:25 Notice Type: IM Discharge Notice Notice Delivered To: Patient Relationship to Patient: Productivity Engineer Name: Delivery Method: HAND - Hand Delivered Ludmila Days: Prior Verbal Notification: Recipient Understood Notice: Yes Recipient Signature: Yes Med Rec Note Co-signed by Attending: Coverage Notice Comment: Last DP export: 06/26/18 11:56 a Patient Name: SVEN PIERRE Page [phone] at 1505 All edits/amendments must be made on the electronic document DICTATION DATE: 06/26/18 1505 ONLINE MARKETING MANAGER: SANDOR 06/26/18 1505 RPT#: [id number] DC DATE: STATUS: ADM IN [facility] [address] [place] [address] END OF REPORT
--- NOTE | 2018-06-26 17:08 | NUR ---
DC PLANS GIVEN. UNDERSTANDING VOICED. ESCORTED TO CAR BY W/C.
--- NOTE | 2018-06-26 18:15 | OP ---
PATIENT NAME: SVEN PIERRE MEDICAL RECORD: [id number] :38 LOCATION:D.M2 D.2119 ADMISSION DATE:06/25/18 SURGEON: JOAN COBB MD DATE OF OPERATION: 06/25/2018 PROCEDURES: 1. Left heart catheterization. 2. Selective coronary angiography. 3. Left ventriculogram. INDICATION: Angina and coronary artery disease. PROCEDURE PERFORMED: After informed consent was obtained and after a detailed explanation of risks, benefits as well as alternative therapies, the patient elected to proceed with angiogram and heart catheterization. The right femoral area was prepped and draped in normal sterile fashion. Right femoral artery was cannulated via modified Seldinger technique with placement of 7-Bangladeshi sheath. All catheters exchanged through this sheath. FINDINGS: The left ventriculogram was performed in standard 30-degree PINA view, reveals good cardiac wall motion throughout all segments. Overall ejection fraction 55%. SELECTIVE CORONARY ANGIOGRAPHY: 1. Left main is with no significant angiographic disease. 2. Left anterior descending has mild irregularities, but no flow-limiting stenosis. 3. The left circumflex is chronically totally occluded. This fills via jnfm-xp-rnhd collaterals. 4. Right coronary artery is chronically totally occluded, fills via pddbg-bg-tuiph and nqjn-fk-bwefh collaterals. ATTEMPTED PTCA AND STENT OF THE RCA: We could not cross the total occlusion with any wire. OVERALL IMPRESSION: Severe 2-vessel coronary artery disease with total occlusion of the circumflex and RCA, both of which are chronic, neither of which are amenable to transcatheter revascularization. TRANSINT:[id number] Voice Confirmation ID: [id number] DOCUMENT ID: [id number] JOAN COBB MD at 1815 CC: [id number] DICTATION DATE: 06/25/18 09 MERCURY PURIFIER: 06/25/18 0917 DIS IN 06/26/18 [place] [id number] [place] [id number]
--- NOTE | 2018-06-26 18:15 | EC ---
PATIENT:SVEN PIERRE DATE OF SERVICE: 06/24/18 SEX: M MEDICAL RECORD: [id number] DATE OF : 38 LOCATION:D.M2 D.211 AGE OF PATIENT: 78 ADMISSION DATE: 06/25/18 REFERRING PHYSICIAN: INTERPRETING PHYSICIAN: JOAN CROFT MD ECHOCARDIOGRAM REPORT ECHO CHARGES 4 ECHO COMPLETE Date: 06/24/18 CLINICAL DIAGNOSIS: ECHOCARDIOGRAPHIC MEASUREMENTS (adult normal given) AC root (d.<3.7cm) 3.9 cm LV Septum d (<1.2 cm> 1.7 cm Valve Excursion 1.4 cm LV Septum (systole) 1.8 cm Left Atria (s.<4.0cm> 4.1 cm LVPW d(<1.2cm) 1.2 cm RV (d.<2.3cm) 3.2 cm LVPW (sytole) 1.2 cm LV diastole(<5.6CM) 5.9 cm MV E-F(>70mm/sec) cm LV systole 4.9 cm LVOT Diameter 1.8 cm MV exc.(>10mm) cm Est.ejection fraction (50-75%) % DOPPLER: LVIT cm/sec A 107 cm/sec E 108 cm/sec LA cm/sec RVSP 34.8 mmHg LVOT 119 cm/sec AOP1/2T m/s Asc. Ao 327 cm/sec RVOT 83 cm/sec RA cm/sec PA 89 cm/sec AV Gradient Peak 42.7 mmHg AV Mean 30.1 mmHg AV Area 1.0 cm MV Gradient Peak 7.6 mmHg MV Mean 4.6 mmHg MV Area cm COMMENTS: Rock Splitter: Jimmy MARISCAL Show Design Supervisor: 1 Dr. Croft TAPE# PACS Pericardial Effusion N DATE OF SERVICE: 06/24/2018 FINDINGS: 1. Left ventricular chamber size is within normal limits. Left ventricular systolic function is normal. Overall ejection fraction estimated at 50%. 2. Left atrium is enlarged at 4.1 cm. Right atrium and right upper extremity sizes are as well mildly dilated. 3. Valvular structures: Aortic valve demonstrates moderate calcific aortic stenosis, valve area calculates between 0.9 and 1.0 cm-squared and a gradient of 33 mm across the valve. The remaining valvular structures have normal structure ECHOCARDIOGRAM REPORT [id number] SVEN PIERRE and motion. 4. Doppler interrogation elsewise reveals mild mitral regurgitation, mild tricuspid regurgitation, no other valvular insufficiency or stenosis. 5. No evidence of pericardial effusion or left ventricular thrombus. TRANSINT:[id number] Voice Confirmation ID: [id number] DOCUMENT ID: [id number] JOAN CROFT MD at 1815 CC: [id number] DICTATION DATE: 06/25/18 1136 DIRECTOR ADVANCED: 06/25/18 1203 DIS IN 06/26/18 [place] [address] [place] [address]
== END 2018-06-26 17:09 | disposition home or self-care (01) | DRG 286 ==
LOC: D.ER 06:11 → D.M2 06:52 → D.EDHOLD 06:52 → OBSVTIME 10:09 → D.M2 10:25
PROVIDERS: Family Medicine; Internal Medicine Interventional Cardiology; Thoracic Surgery (Cardiothoracic Vascular Surgery); ADMIT Family Medicine
PROC: B2151ZZ Fluoroscopy of Left Heart using Low Osmolar Contrast (ICD-10-PCS; 2018-06-25)
PROC: 4A023N7 Measurement of Cardiac Sampling and Pressure, Left Heart, Percutaneous Approach (ICD-10-PCS; 2018-06-25)
PROC: B2111ZZ Fluoroscopy of Multiple Coronary Arteries using Low Osmolar Contrast (ICD-10-PCS; principal; 2018-06-25 07:35)
DX: I25.119 Atherosclerotic heart disease of native coronary artery with unspecified angina pectoris (principal); J96.00 Acute respiratory failure, unspecified whether with hypoxia or hypercapnia; J81.1 Chronic pulmonary edema; I25.82 Chronic total occlusion of coronary artery; I35.0 Nonrheumatic aortic (valve) stenosis; I12.9 Hypertensive chronic kidney disease with stage 1 through stage 4 chronic kidney disease, or unspecified chronic kidney disease; N18.3 Chronic kidney disease, stage 3 (moderate); I48.91 Unspecified atrial fibrillation; E78.5 Hyperlipidemia, unspecified

== ENCOUNTER 2018-10-24 05:45 | Inpatient (IN) | payer MEDICARE, OTHER ==
[2018-10-24] VITALS (18 sets, daily range): BP systolic 116–150; BP diastolic 59–93; Ht 172.7 cm; Wt 83.1 kg
[~2018-10-24] VITALS: Ht 172.7 cm; Wt 83.1 kg
[~2018-10-24 05:45] MED LIST changes: +BETAPACE 80 MG80 MG PO; +LASIX40 MG PO; +XARELTO15 MG PO
[2018-10-24 06:20] LABS: BASOPHILS 0.1 % (0-2); HEMATOCRIT 32.5 % (42.0-54.0); HEMOGLOBIN 10.6 g/dL (13.5-17.5); IMMATURE GRANULOCYTES 0.3 % (0-5); LYMPHOCYTES 18.6 % (15-50); MCH 33.1 pg (26.0-34.0); MCHC 32.6 g/dL (31.0-37.0); MCV 101.6 fL (80.0-100.0); MEAN PLATELET VOLUME 10.4 fL (7.4-10.4); MONOCYTES 7.4 % (2-11); NEUTROPHILS 70.6 % (40-80); RDW 14.9 % (11.5-14.5); WBC 7.8 10x3/uL (4.8-10.8)
[2018-10-24 06:21] LABS: PLATELET COUNT 114 10x3/uL (130-400)
[2018-10-24 06:22] LABS: APTT 30.2 SECONDS (22.8-39.4); INR 1.1 (0.85-1.17); PROTIME 13.7 SECONDS (11.6-15.0)
[2018-10-24 06:25] LABS: ALBUMIN 3.4 g/dL (3.4-5.0); ANION GAP 10.4 mmol/L (8-16); BILIRUBIN - TOTAL 0.5 mg/dL (0.2-1.3); CALCIUM 9.2 mg/dL (8.5-10.1); CARBON DIOXIDE 27.8 mmol/L (21.0-32.0); CREATININE - SERUM 1.7 mg/dL (0.6-1.3); POTASSIUM - SERUM 4.2 mmol/L (3.5-5.1); PROTEIN - SERUM 6.4 g/dL (6.4-8.2)
[2018-10-24] MEDS ORDERED: ZYLOPRIM100 MG PO (06:36)
[2018-10-24] MEDS ORDERED: BAYER CHEWABLE81 MG PO (06:36)
[2018-10-24] MEDS ORDERED: CILOSTAZOL100 MG PO (06:37)
[2018-10-24 08:54] LABS: % SATURATION 14 % (15-55); IRON 47 ug/dl (35-150); TOTAL IRON BIND CAPACITY 330 ug/dl (260-445); UNSAT IRON BIND CAPACITY 283 ug/dl (150-375)
[2018-10-24 12:02] LABS: BASOPHILS 0.1 % (0-2); EOSINOPHILS 2.9 % (0-7); HEMATOCRIT 32.9 % (42.0-54.0); HEMOGLOBIN 10.7 g/dL (13.5-17.5); IMMATURE GRANULOCYTES 0.3 % (0-5); LYMPHOCYTES 19.7 % (15-50); MCHC 32.5 g/dL (31.0-37.0); MCV 101.5 fL (80.0-100.0); MEAN PLATELET VOLUME 10.7 fL (7.4-10.4); MONOCYTES 6.8 % (2-11); NEUTROPHILS 70.2 % (40-80); PLATELET COUNT 130 10x3/uL (130-400); RBC 3.24 10x6/uL (4.20-6.10); RDW 14.9 % (11.5-14.5); WBC 7.9 10x3/uL (4.8-10.8)
--- NOTE | 2018-10-24 15:38 | MORECARE ---
CASE MANAGEMENT DISCHARGE SUMMARY PATIENT: SVEN PIERRE UNIT: [id number] ADM DATE: 10/24/18 AGE: 78 : 39 SEX: M ROOM/BED: D.2309 AUTHOR: LEOBARDODOC PHYSICIAN: REFERRING PHYSICIAN: KURT MUELLER MD DATE OF SERVICE: 10/24/18 Discharge Plan Patient Name: SVEN PIERRE Facility: [facility]:[place] : 1940 Planned Disposition: Home Anticipated Discharge Date: Discharge Date: Expected LOS: Initial Reviewer: [email or web address] Initial Review Date: 10/24/2018 Generated: 10/24/18 4:38 pm Comments DCP- Discharge Planning Updated by [email or web address]: Carie Gonzalez on 10/24/18 2:[address] Patient Name: SVEN PIERRE Admission Status: ER Accout number: [id number] Admission Date: 10-24-2018 : 1940 Admission Diagnosis: Attending: KURT MUELLER Current LOS: 1 Anticipated DC Date: Planned Disposition: Home Primary Insurance: MEDICARE A & B Discharge Planning Comments: CM MET WITH PATIENT ABOUT DC PLANNING/NEEDS. [facility] PLANS TO DC TO HOME WITH AND HAS NO NEEDS. [facility] HAS BEEN SET UP WITH [facility]. HE STATES THEY WILL SEE HIM WHEN HE IS DC'D TO HOME. CM WILL FOLLOW AND ASSIST NEEDED WITH DC PLANNING/NEEDS. Tile Finisher: Carie Gonzalez DCPIA - Discharge Planning Initial Assessment Updated by [email or web address]: Carie Gonzalez on 10/24/18 3:34 pm * Is the patient Alert and Oriented? Yes * PCP WALLY * Pharmacy [facility] * Preadmission Environment Home with Family * ADLs Independent * Equipment None * List name and contact numbers for known caregivers / representatives who currently or will assist patient after discharge: SANDRA, SPOUSE, * Community resources currently utilized Home Health * Please name any agencies selected above. [facility]. * Additional services required to return to the preadmission environment? No * Can the patient safely return to the preadmission environment? Yes * Has this patient been hospitalized within the prior 30 days at any hospital? No Patient Name: SVEN PIERRE Page [phone] at 1538 All edits/amendments must be made on the electronic document DICTATION DATE: 10/24/181537 HOUSEKEEPER MANAGER: SANDOR 10/24/181537 RPT#: [id number] DC DATE: STATUS: ADM IN [facility] [address] [place] [address] END OF REPORT
[2018-10-24 17:52] LABS: APPEARANCE CLEAR (CLEAR); COLOR STRAW (YELLOW)
[2018-10-24 17:53] LABS: BILIRUBIN NEGATIVE (NEGATIVE); GLUCOSE NEGATIVE (NEGATIVE); KETONE NEGATIVE (NEGATIVE); NITRITE NEGATIVE (NEGATIVE); PROTEIN NEGATIVE (NEGATIVE); SPECIFIC GRAVITY 1.005 (1.005-1.020); UROBILINOGEN NORMAL (NORMAL)
[2018-10-25] VITALS (17 sets, daily range): BP systolic 90–134; BP diastolic 44–71
[2018-10-25 03:17] LABS: BASOPHILS 0 % (0-2); EOSINOPHILS 3.3 % (0-7); HEMATOCRIT 32.7 % (42.0-54.0); HEMOGLOBIN 10.6 g/dL (13.5-17.5); IMMATURE GRANULOCYTES 0.1 % (0-5); LYMPHOCYTES 19.8 % (15-50); MCH 33.3 pg (26.0-34.0); MCHC 32.4 g/dL (31.0-37.0); MCV 102.8 fL (80.0-100.0); MEAN PLATELET VOLUME 10.6 fL (7.4-10.4); MONOCYTES 9.7 % (2-11); NEUTROPHILS 67.1 % (40-80); PLATELET COUNT 111 10x3/uL (130-400); RBC 3.18 10x6/uL (4.20-6.10); RDW 15.4 % (11.5-14.5); WBC 7.6 10x3/uL (4.8-10.8)
[2018-10-25 03:29] LABS: ALBUMIN 3.1 g/dL (3.4-5.0); ANION GAP 10.7 mmol/L (8-16); BILIRUBIN - TOTAL 0.61 mg/dL (0.2-1.3); CALCIUM 8.7 mg/dL (8.5-10.1); CARBON DIOXIDE 28.3 mmol/L (21.0-32.0); CREATININE - SERUM 1.5 mg/dL (0.6-1.3)
[2018-10-26 01:08] VITALS: BP 121/52
[2018-10-26 06:34] LABS: BASOPHILS 0 % (0-2); EOSINOPHILS 2.8 % (0-7); HEMATOCRIT 31.4 % (42.0-54.0); IMMATURE GRANULOCYTES 0.1 % (0-5); MCH 32.7 pg (26.0-34.0); MCHC 31.8 g/dL (31.0-37.0); MCV 102.6 fL (80.0-100.0); MEAN PLATELET VOLUME 10.5 fL (7.4-10.4); MONOCYTES 7.7 % (2-11); NEUTROPHILS 71.4 % (40-80); PLATELET COUNT 94 10x3/uL (130-400); RBC 3.06 10x6/uL (4.20-6.10); RDW 15.2 % (11.5-14.5); WBC 7.2 10x3/uL (4.8-10.8)
[2018-10-26 06:46] LABS: ANION GAP 10.8 mmol/L (8-16); CALCIUM 8.3 mg/dL (8.5-10.1); CARBON DIOXIDE 27.2 mmol/L (21.0-32.0); CREATININE - SERUM 1.5 mg/dL (0.6-1.3)
[2018-10-26 06:59] LABS: PLATELET ESTIMATE DECREASED
[2018-10-26 08:05] VITALS: BP 128/59
[2018-10-26 11:53] VITALS: BP 112/47
[2018-10-26 15:06] VITALS: BP 109/47
[2018-10-26 18:06] LABS: FOLATE (FOLIC ACID) - SERUM >20.0 ng/mL (>3.0)
[2018-10-26 20:22] VITALS: BP 137/86
[2018-10-27 05:48] LABS: ANION GAP 11.5 mmol/L (8-16); CALCIUM 8.2 mg/dL (8.5-10.1); CARBON DIOXIDE 26.4 mmol/L (21.0-32.0); CREATININE - SERUM 1.3 mg/dL (0.6-1.3); MAGNESIUM - SERUM 1.6 mg/dL (1.8-2.4); POTASSIUM - SERUM 3.9 mmol/L (3.5-5.1)
[2018-10-27 06:02] VITALS: BP 141/62
[2018-10-27 06:19] LABS: BASOPHILS 0.1 % (0-2); EOSINOPHILS 2.5 % (0-7); HEMATOCRIT 31.9 % (42.0-54.0); HEMOGLOBIN 10.3 g/dL (13.5-17.5); IMMATURE GRANULOCYTES 0.1 % (0-5); LYMPHOCYTES 16.2 % (15-50); MCH 32.9 pg (26.0-34.0); MCHC 32.3 g/dL (31.0-37.0); MCV 101.9 fL (80.0-100.0); MEAN PLATELET VOLUME 10.3 fL (7.4-10.4); MONOCYTES 8.6 % (2-11); NEUTROPHILS 72.5 % (40-80); PLATELET COUNT 93 10x3/uL (130-400); RBC 3.13 10x6/uL (4.20-6.10); RDW 15.2 % (11.5-14.5); WBC 7.6 10x3/uL (4.8-10.8)
[2018-10-27 09:00] VITALS: BP 150/66
[2018-10-27] MEDS ORDERED: CARAFATE1 G PO (10:24)
[2018-10-27] MEDS ORDERED: PROTONIX40 MG PO (10:25)
--- NOTE | 2018-10-27 11:20 | MORECARE ---
CASE MANAGEMENT DISCHARGE SUMMARY PATIENT: SVEN PIERRE UNIT: [id number] ADM DATE: 10/24/18 AGE: 78 : 39 SEX: M ROOM/BED: D.2237 AUTHOR: LEOBARDODOC PHYSICIAN: REFERRING PHYSICIAN: KURT MUELLER MD DATE OF SERVICE: 10/27/18 Discharge Plan Patient Name: SVEN PIERRE Facility: [facility]:[place] : 1940 Planned Disposition: Home Anticipated Discharge Date: Discharge Date: Expected LOS: Initial Reviewer: [email or web address] Initial Review Date: 10/24/2018 Generated: 10/27/18 12:20 pm Comments DCP- Discharge Planning Updated by [id number]: Carie Gonzalez on 10/24/18 2:[address] Patient Name: SVEN PIERRE Admission Status: ER Accout number: [id number] Admission Date: 10-24-2018 : 1940 Admission Diagnosis: Attending: KURT MUELLER Current LOS: 1 Anticipated DC Date: Planned Disposition: Home Primary Insurance: MEDICARE A & B Discharge Planning Comments: CM MET WITH PATIENT ABOUT DC PLANNING/NEEDS. [facility] PLANS TO DC TO HOME WITH AND HAS NO NEEDS. [facility] HAS BEEN SET UP WITH [facility]. HE STATES THEY WILL SEE HIM WHEN HE IS DC'D TO HOME. CM WILL FOLLOW AND ASSIST NEEDED WITH DC PLANNING/NEEDS. Lumber Piler: Carie Gonzalez DCPIA - Discharge Planning Initial Assessment Updated by [email or web address]: Carie Gonzalez on 10/24/18 3:34 pm * Is the patient Alert and Oriented? Yes * PCP WALLY * Pharmacy [facility] * Preadmission Environment Home with Family * ADLs Independent * Equipment None * List name and contact numbers for known caregivers / representatives who currently or will assist patient after discharge: SANDRA, SPOUSE, * Community resources currently utilized Home Health * Please name any agencies selected above. [facility]OUGH [facility]. * Additional services required to return to the preadmission environment? No * Can the patient safely return to the preadmission environment? Yes * Has this patient been hospitalized within the prior 30 days at any hospital? No Last DP export: 10/24/18 2:38 p Patient Name: SVEN PIERRE Page [phone] at 1120 All edits/amendments must be made on the electronic document DICTATION DATE: 10/27/181118 INFORMATION TECHNOLOGY SECURITY ANALYST: SANDOR 10/27/181118 RPT#: [id number] DC DATE: STATUS: ADM IN [facility] [address] [place] [address] END OF REPORT
--- NOTE | 2018-10-27 11:27 | MORECARE ---
CASE MANAGEMENT DISCHARGE SUMMARY PATIENT: SVEN PIERRE UNIT: [id number] ADM DATE: 10/24/18 AGE: 78 : 39 SEX: M ROOM/BED: D.2237 AUTHOR: MARIBELL BOOTH PHYSICIAN: REFERRING PHYSICIAN: KURT MUELLER MD DATE OF SERVICE: 10/27/18 Discharge Plan Patient Name: SVEN PIERRE Facility: [facility]:[place] : 1940 Planned Disposition: Home Anticipated Discharge Date: Discharge Date: Expected LOS: Initial Reviewer: [email or web address] Initial Review Date: 10/24/2018 Generated: 10/27/18 12:27 pm Comments DCP- Discharge Planning Updated by [id number]: Paula Solano on 10/27/18 10:[address] Patient Name: SVEN PIERRE Encounter No: [id number] : 1940 Primary Insurance: MEDICARE A & B Anticipated DC Date: Planned Disposition: Home External Planned Provider: : DCP follow-up note: Patient in agreement with discharge plan to home. Order for home health received. Patient refused the need for home health. He denied need for dme or other dc needs at this time. He felt his dc to home with his without home health is a safe dc plan. DC IMM delivered, explained, signed by the patient, and placed in his chart. Signed form also left with patient. No changes to plan. Case management will follow and assist as needed. Paula Solano RN, [facility] DCP- Discharge Planning Updated by [email or web address]: Carie Gonzalez on 10/24/18 2:[address] Patient Name: SVEN PIERRE Admission Status: ER Accout number: [id number] Admission Date: 10-24-2018 : 1940 Admission Diagnosis: Attending: KURT MUELLER Current LOS: 1 Anticipated DC Date: Planned Disposition: Home Primary Insurance: MEDICARE A & B Discharge Planning Comments: CM MET WITH PATIENT ABOUT DC PLANNING/NEEDS. STATES PLANS TO DC TO HOME WITH AND HAS NO NEEDS. [facility] HAS BEEN SET UP WITH [facility]ROUGH [facility]. HE STATES THEY WILL SEE HIM WHEN HE IS DC'D TO HOME. CM WILL FOLLOW AND ASSIST NEEDED WITH DC PLANNING/NEEDS. Peripatologist: Carie Gonzalez DCPIA - Discharge Planning Initial Assessment Updated by [email or web address]: Carie Gonzalez on 10/24/18 3:34 pm * Is the patient Alert and Oriented? Yes * PCP WALLY * Pharmacy [facility] * Preadmission Environment Home with Family * ADLs Independent * Equipment None * List name and contact numbers for known caregivers / representatives who currently or will assist patient after discharge: SANDRA, SPOUSE, * Community resources currently utilized Home Health * Please name any agencies selected above. [facility]. * Additional services required to return to the preadmission environment? No * Can the patient safely return to the preadmission environment? Yes * Has this patient been hospitalized within the prior 30 days at any hospital? No Last DP export: 10/27/18 10:20 a Patient Name: SVEN PIERRE Page [phone] at 1127 All edits/amendments must be made on the electronic document DICTATION DATE: 10/27/18 112 CHAIN PERSON: SANDOR 10/27/18 1126 RPT#: [id number] DC DATE: STATUS: ADM IN [facility] [address] [place] [address] END OF REPORT
== END 2018-10-27 12:33 | disposition home or self-care (01) | DRG 381 ==
LOC: D.ER 05:45 → D.MS 05:58 → D.ICU 05:58 → D.MS 10-25 14:05
PROVIDERS: Family Medicine; Internal Medicine Gastroenterology; ADMIT Internal Medicine Nephrology; ATTEND Internal Medicine Nephrology
PROC: 0DJ08ZZ Inspection of Upper Intestinal Tract, Via Natural or Artificial Opening Endoscopic (ICD-10-PCS; principal; 2018-10-25 08:30)
DX: K22.11 Ulcer of esophagus with bleeding (principal); D62 Acute posthemorrhagic anemia; N17.9 Acute kidney failure, unspecified; K29.01 Acute gastritis with bleeding; K29.81 Duodenitis with bleeding; D64.9 Anemia, unspecified; D69.6 Thrombocytopenia, unspecified; I12.9 Hypertensive chronic kidney disease with stage 1 through stage 4 chronic kidney disease, or unspecified chronic kidney disease; N18.3 Chronic kidney disease, stage 3 (moderate); I48.91 Unspecified atrial fibrillation

== ENCOUNTER 2019-06-10 08:20 | Outpatient (CLI) | payer MEDICARE, OTHER ==
[~2019-06-10] VITALS: Ht 172.7 cm; Wt 81.8 kg
--- NOTE | ~2019-06-10 | HEMODYNAMI ---
PATIENT:SVEN PIERRE MEDICAL RECORD: [id number] : 38 LOCATION:[facility] ADMISSION DATE: 06/10/19 Generatedon:06/10/201911:00 Patient name: SVEN PIERRE Patient #: [id number] SSN: DO B: 1940 Date of study: 06/10/2019 Page: Of Hemodynamic Procedure Report Patient Data Patient Demographics Procedure consent was obtained First Name: SVEN Gender: Male Last Name: IGNACIO : 1940 Middle Initial: T Age: 78 year(s) Patient #: [id number] Race: Additional ID: [id number] Contact details Address: [address] [place] [address] State: [place] City: [facility] Zip code: [address] Past Medical History Allergies Allergen Reaction Date Comments Reported Other allergy 06/10/2019 DOXYCYCLINE, PCN Admission Admission Data Admission Date: 06/10/2019 Admission Time: 8:20 Arrival Date: 06/10/2019 Arrival Time: 0:00 Admit Source: Other Insurance Payor: Medicare [facility] #: [id number] Height (in.): 67.72 BSA: 1.95 (m2) Height (cm.): 172 BMI: 27.72 (kg/m2) Weight (lbs.): 180.78 Weight (kg.): 82 Lab Results Lab Result Date: 06/10/2019 Lab Result Time: 0:00 Biochemistry Name Units Result Min Max BUN mg/dl 37 --(----)-* 7 18 Creatinine mg/dl 1.9 --(----)-* 0.6 1.3 eGFR ml/min 36 *-(----)-- 90 120 NONAFRICAN CBC Name Units Result Min Max Hematocrit % 33.8 *-(----)-- 42 54 Hemoglobin g/dl 10.4 *-(----)-- 13.5 17.5 Procedure Procedure Types Cath Procedure Diagnostic Procedure C LHC w/Coronaries Sedation Charges Moderate Sedation up to 30 minutes PCI Procedure Coronary Stent Coronary Stent Initial Hemochron ACT Test Procedure Description Procedure Date Procedure Date: 06/10/2019 Procedure Start Time: 10:16 Procedure End Time: 10:58 Procedure Staff Name Function Kevin Croft MD Performing Physician Liz Ortega RT Monitor Bee Lange RT Scrub Aguila Herzog RN Nurse Procedure Data Cath Procedure Fluoroscopy Diagnostic fluoroscopy Total fluoroscopy Time: 8 time: 8 min min Diagnostic fluoroscopy Total fluoroscopy dose: 875 dose: 875 mGy mGy Contrast Material Contrast Material Type Amount (ml) Isovue 370 173 Entry Location Entry Primary Successful Side Size Upsize Upsize Entry Closure Succes sful Closure Location (Fr) 1 (Fr) 2 (Fr) Remarks Device Remarks Femoral Right 5 Fr 6 Fr Exoseal artery Short Estimated blood loss: 10 ml Diagnostic catheters Device Type Used For End Catheter Placement MULTIPACK Pigtail 5 Fr Procedure catheter MULTIPACK JL 4.0 5Fr Procedure catheter MULTIPACK 3DRC 5Fr Procedure catheter Procedure Complications No complications Procedure Medications Medication Administration Route Dosage 0.9% NaCl I.V. 100 ml/hr Oxygen etCO2 Nasal cannula 4 l/min Heparin Flush Bag added to field 2 bags (1000units/500ml NS) Lidocaine 2% added to field 20 Versed I.V. 0.5 mg Fentanyl I.V. 25 mcg Heparin Bolus I.V. 4000 units Integrilin (Bolus I.V. 7.3 ml 2mg/ml) Integrilin (Bolus wasted 2.7 ml 2mg/ml) Plavix P.O. 600 mg Hemodynamics Rest BSA: 1.95 (m2) HGB: 10.4 (g/dl) O2 Consumption: Estimated: 239.34 (ml/min) O2 Co nsumption indexed: Estimated:122.74 (ml/min/m) Heart Rate: 93 (bpm) Snapshots Pre Cath Intra NCS Post Cath Vital Signs Time Heart Resp SPO2 etCO2 NIBP Rhythm Pain Sedation Rate (ipm) (%) (mmHg) (mmHg) Status Level (bpm) 10:10:41 81 26 91 12.8 114/67(89) NSR 0 (11) 10(A) , No pain 10:14:47 83 23 94 18.9 110/60(81) NSR 0 (11) 10(A) , No pain 10:18:53 84 21 93 9.8 116/60(85) NSR 0 (11) 10(A) , No pain 10:23:01 82 21 92 0 112/56(87) NSR 0 (11) 10(A) , No pain 10:27:07 83 21 92 0 100/62(81) NSR 0 (11) 10(A) , No pain 10:31:10 84 21 92 0 107/55(75) NSR 0 (11) 10(A) , No pain 10:35:16 85 22 92 0 112/59(82) NSR 0 (11) 10(A) , No pain 10:39:24 82 20 88 26.5 108/58(80) NSR 0 (11) 10(A) , No pain 10:43:30 83 25 94 25 114/57(85) NSR 0 (11) 10(A) , No pain 10:47:37 83 22 95 22 100/58(81) NSR 0 (11) 10(A) , No pain 10:51:41 83 23 94 24.2 106/55(82) NSR 0 (11) 10(A) , No pain 10:55:45 84 25 95 20.4 108/59(86) NSR 0 (11) 10(A) , No pain Medications Time Medication Route Dose Verified Delivered Reason Notes Effectiveness by by 10:09:23 0.9% NaCl I.V. 100 Aguial Aguila Per physician ml/hr Rosenda Herzog RN RN 10:09:39 Oxygen etCO2 4 Aguila Aguila for low 02 sats Nasal l/min Rosenda Herzog cannula RN RN 10:09:52 Heparin Flush added 2 Aguila Aguila used for Bag to bags Rosenda Herzog procedure (1000units/500ml field RN RN NS) 10:10:05 Lidocaine 2% added 20ml Aguila Aguila for local to vial Rosenda Herzog anesthetic field RN RN 10:14:02 Versed I.V. 0.5 Aguila Aguila for sedation mg Rosenda Herzog RN RN 10:14:12 Fentanyl I.V. 25 Aguila Aguila for sedation mcg Rosenda Herzog RN RN 10:27:04 Heparin Bolus I.V. 4000 Aguila Aguila for units Rosenda Herzog anticoagulation RN RN 10:27:24 Integrilin I.V. 7.3 Aguila Aguila for (Bolus 2mg/ml) ml Rosenda Herzog antiplatelet RN RN therapy 10:27:34 Integrilin wasted 2.7 Aguila Aguila to sharp's (Bolus 2mg/ml) ml Rosenda Herzog RN RN 10:56:22 Plavix P.O. 600 Aguila Aguila for mg Rosenda Herzog antiplatelet RN RN therapy Procedure Log Time Note 9:36:10 Informed consent obtained and on chart 9:37:02 Procedure Status Elective Heart Cath (OP). 9:37:04 Time tracking: Regular hours (M-F 7:00 - 5:00) 9:37:07 Plan of Care:Hemodynamics will remain stable., Cardiac rhythm will remain stable., Comfort level will be maintained., Respiratory function will remain adequate., Patient/ family verbilizes understanding of procedure., Procedure tolerated without complication., Recovers from procedure without complications.. 9:37:21 H&P Date Dictated: 06/08/2019 Within 30 days and on chart., H&P Addendum completed by physician on day of procedure. (MUST COMPLETE FOR ALL OUTPATIENTS). 9:37:35 Patient allergic to Other allergyDOXYCYCLINE, PCN 9:38:19 Patient Weight : 180.78 lbs 9:38:29 Patient Height : 67.72 inches 9:38:33 Arrival Date: 06/10/2019 12:00:00 AM 9:53:04 Risk of Mortality: 0.4 9:53:07 Risk of blood transfusion: 1.6 9:53:10 Risk of LUCY: 3.5 9:53:22 Stress Test: no; N/A ? 9:53:37 Bee Lange RT(R) sent for patient. Start room use. 9:53:53 Lab results completed and on chart. 9:54:21 Lab Result : BUN 37 mg/dl 9:54:21 Lab Result : Creatinine 1.9 mg/dl 9:54:21 Lab Result : eGFR NONAFRICAN 36 ml/min 9:54:21 Lab Result : Hemoglobin 10.4 g/dl 9:54:21 Lab Result : Hematocrit 33.8 % 9:54:27 Admit Source: Other 9:54:50 Insurance Payor : Medicare 9:55:40 Patient received from Pre/Post Procedure Room to CCL 3 Alert and oriented. Tansferred to table in Supine position. 9:55:41 Warm blankets applied, and diamante hugger turned on for patient comfort. 9:55:42 Correct patient and procedure confirmed by team. 9:55:43 ECG and BP/O2 sat monitors applied to patient. 9:55:48 Family in waiting room. 9:55:49 Pre-procedure instructions explained to patient. 9:55:49 Pre-op teaching completed and patient verbalized understanding. 9:55:52 Patient NPO since Midnight. 10:08:10 Is the patient allergic to Iodine/contrast media? No. 10:08:13 Is patient on blood thinner?No 10:08:15 Patient diabetic? No. 10:08:17 If diabetic: On Metformin? N/A 10:08:19 ----Pre-sedation anethsthesia assessment.---- 10:08:23 Previous problem with sedation/anesthesia? No ? 10:08:24 Snore? Yes 10:08:25 Sleep apnea? No 10:08:26 Deviated septum? No 10:08:28 Opens mouth fully? Yes 10:08:29 Sticks out tongue? Yes 10:08:31 Airway obstruction? No ? 10:08:33 Dentures? No ? 10:08:38 Pre procedure: right dorsailis pedis pulse 2+ Normal; easily identifiable; not easily obliterated 10:08:43 Patient pain scale 0/10 ?. 10:09:07 IV patent on arrival in left forearm with 0.9% NaCl at [facility]. 10:09:14 Right groin area was prepped with chlora-prep and draped in sterile fashion 10:09:15 Alarms reviewed by R. N. 10:09:15 Sharps counted by scrub and verified by R.N. 10:09:19 Use device set Femoral Dx 10:09:21 ACIST Syringe (71521) opened to sterile field. 10:09:22 Bag Decanter (2002) opened to sterile field. 10:09:22 Medline Cath Pack ([id number]) opened to sterile field. 10:09:23 0.9% NaCl 100 ml/hr I.V. was administered by Aguila Herzog RN; Per physician; Verbal order read back and verified. 10:09:24 ACIST Hand Control (01942) opened to sterile field. 10:09:25 ACIST Manifold (61229) opened to sterile field. 10:09:26 DIAGNOSTIC Multipack 5Fr catheter set ([id number]) opened to sterile field. 10::27 EXOSEAL 5Fr (EX500) opened to sterile field. 10:09:31 EMERALD Guide Wire (121-508) opened to sterile field. 10:09:38 Vital chart was started 10::39 Oxygen 4 l/min etCO2 Nasal cannula was administered by Aguila Herzog RN; for low 02 sats; Verbal order read back and verified. 10::39 Full Disclosure recording started 10::42 Baseline sample Acquired. 10::47 Rhythm: sinus rhythm 10::52 Heparin Flush Bag (1000units/500ml NS) 2 bags added to field was administered by Aguila Herzog RN; used for procedure; Verbal order read back and verified. 10:10:05 Lidocaine 2% 20ml vial added to field was administered by Aguila Herzog RN; for local anesthetic; Verbal order read back and verified. 10:13:02 Zero performed for pressure channel P1 10::27 --------ALL STOP TIME OUT------ 10::27 Final Timeout: patient, procedure, and site verified with staff and physician. All members of the team are in agreement. 10:13:29 Right groin site verified by team. 10:13:33 Fire Safety Assessment: A--An alcohol-based skin anteseptic being used preoperatively., C--Open oxygen or nitrous oxide is being used., D--An ESU, laser, or fiber-optic light is being used. 10:13:37 Physical assessment completed. ASA score P 2 - A patient with mild systemic disease as per Kevin Croft MD. 10:13:42 3b) 30-44 Moderately reduced kidney function. 10:13:46 Maximum allowable contrast dose (3.7 X eGFR X 0.75)100 ml. 10:13:51 Sedation plan: IV Moderate Sedation Medication:Versed, Fentanyl 10:14:02 Versed 0.5 mg I.V. was administered by Aguila Herzog RN; for sedation; Verbal order read back and verified. 10:14:12 Fentanyl 25 mcg I.V. was administered by Aguila Lorigan RN; for sedation; Verbal order read back and verified. 10:16:23 Procedure started. 10:16:50 Local anesthetic to right femoral artery with Lidocaine 2% by Kevin Croft MD.INITIAL ACCESS ONLY 10:17:22 A 5 Fr sheath was inserted into the Right Femoral artery 10:18:13 Injector settings: Ml/sec: 10, Volume: 20, 10:18:16 LV gram done using PINA 10:18:35 EF : 20 % 10:18:44 Catheter removed. 10:18:50 A MULTIPACK Pigtail 5 Fr catheter was advanced over the wire and used for Procedure. 10:18:56 A MULTIPACK JL 4.0 5Fr catheter was advanced over the wire and used for Procedure. 10:20:20 UNABLE TO CANNULATE WIHT JL4 GOING TO JL5. 10:21:02 GUIDE 6FR JL 5.0 catheter ([id number]) opened to sterile field. 10:21:46 LCA angiography performed. 10:22:25 Catheter removed. 10:23:08 A MULTIPACK 3DRC 5Fr catheter was advanced over the wire and used for Procedure. 10:23:41 RCA angiography performed. 10:23:54 Catheter removed. 10:24:12 Proceeding to intervention. 10:24:24 Sheath upsized to a 6 Fr Short. 10:24:35 SHEATH 6FR [place] (WQR876) opened to sterile field. 10:24:37 INFLATOR Merit BasixCompak (UY7683) opened to sterile field. 10:24:51 GUIDE 6FR EBU 5.0 catheter ([id number]) opened to sterile field. 10:25:02 6 Fr EBU 5.0 guide catheter was inserted over the wire 10:26:24 CHOICE PT Extra Support 182cm wire ([id number]) opened to sterile field. 10:27:04 Heparin Bolus 4000 units I.V. was administered by Aguila Herzog RN; for anticoagulation; Verbal order read back and verified. 10:27:06 CHOICE ES 182 wire advanced. 10:27:24 Integrilin (Bolus 2mg/ml) 7.3 ml I.V. was administered by Aguila Herzog RN; for antiplatelet therapy; Verbal order read back and verified. 10:27:34 Integrilin (Bolus 2mg/ml) 2.7 ml wasted was administered by Aguila Herzog RN; to frances's; Verbal order read back and verified. 10:28:41 Wire removed. unable to cross lesion. 10:28:58 WHISPER 190cm wire ([id number]) opened to sterile field. 10:29:06 WHISPER 190 wire advanced. 10:31:36 Wire removed. unable to cross lesion. 10:32:06 FIELDER XT J 300cm guide wire ([id number]) opened to sterile field. 10:33:36 SUPERCROSS CATHETER ADVANCED. 10:35:24 FIELDER XT 300 wire advanced. 10:39:58 Wire advanced across lesion. 10:40:57 SUPERCROSS CATHERTER REMOVED. 10:41:58 Inflate balloon Inflation number: 1 A EUPHORA 2.0 x 15 Balloon ([id number]) was prepped and advanced across the Mid CX , then inflated to 13 DADA for 0:00 (min:sec) . 10:42:16 Inflation number: 2 The EUPHORA 2.0 x 15 Balloon ([id number]) was reinflated across the Mid CX , to 13 DADA for 0:00 (min:sec) . 10:45:42 Inflate balloon Inflation number: 3 A EUPHORA 1.5 x 20 Balloon ([id number]) was prepped and advanced across the Mid CX , then inflated to 21 DADA for 0:00 (min:sec) . 10:45:45 Balloon removed over the wire. 10:46:15 Inflate balloon Inflation number: 4 A Mozec Rx 2.5 x 20 balloon was prepped and advanced across the Mid CX , then inflated to 13 DADA for 0:00 (min:sec) . 10:46:18 Inflation number: 5 The Mozec Rx 2.5 x 20 balloon was reinflated across the Mid CX , to 17 DADA for 0:00 (min:sec) . 10:47:13 Balloon removed over the wire. 10:48:22 Place stent Inflation Number: 6 A INTEGRITY RX 2.5 x 22 stent ([id number]) was prepped and advanced across the Mid CX . The stent was deployed at 17 DADA for 0:00 (min:sec) . 10:48:53 Stent catheter was removed intact over wire. 10:48:54 Wire removed. 10:48:55 Guide catheter removed. 10:49:02 EXOSEAL 6Fr (EX600) opened to sterile field. 10:49:09 SuperCross Microcatheter 90 angle (5304) opened to sterile field. 10:49:28 Sheath removed intact; hemostasis achieved with Exoseal to the Right Femoral artery. 10:49:30 Procedure ended.(Physican Out) 10:51:00 Contrast amount:Isovue 370 173ml. 10:51:02 Maximum allowable dose exceeded? Yes. 10:51:03 Sharps counted by scrub and verified by R.N. 10:51:08 Post-op/insertion site Right Femoral artery dressed using a 4 x 4 and Tegaderm. 10:51:13 Post right femoral artery:stable, soft, clean and dry 10:51:15 Post Procedure Pulses reassessed and unchanged 10:51:18 Post procedure: right dorsailis pedis pulse 2+ Normal; easily identifiable; not easily obliterated. 10:51:22 Post procedure rhythm: unchanged. 10:51:25 Post-procedure physical assessment completed. ASA score P 2 - A patient with mild systemic disease as per Kevin Croft MD. 10:51:28 Estimated blood loss: 10 ml 10:51:30 Post procedure instruction explained to patient.Patient verbalizes understanding. 10:51:31 Patient needs reinforcement of post procedure teaching. 10:51:52 Procedure type changed to Cath procedure, Diagnostic procedure, LHC, [facility] w/Coronaries, Sedation Charges, Moderate Sedation up to 30 minutes, PCI procedure, Coronary Stent, Coronary Stent Initial, Hemochron ACT Test 10:53:53 Fluoroscopy time 08.00 minutes. 10:54:00 Fluoroscopy dose: 875 mGy 10:54:00 Flurop Dose total: 875 10:54:09 Dose Area Product 89732 mGy/cm. 10:54:15 ACT drawn and resulted at 202 seconds. (normal therapeutic range 180-240 seconds). 10:56:22 Plavix 600 mg P.O. was administered by Aguila Herzog RN; for antiplatelet therapy; Verbal order read back and verified. 10:58:30 Procedure and supply charges have been captured, reviewed, submitted and are correct. 10:58:34 Procedure Complication : No complications 10:58:37 Vital chart was stopped 10:58:40 [facility] Findings: MVD- PCI performed (see procedure note) 10:58:42 Operative report dictated upon procedure completion. 10:58:43 See physician's report for complete and final results. 10:58:46 Report given to Pre/Post Procedure Room. 10:58:49 Patient transfered to Pre/Post Procedure Room with Stretcher. 10:58:54 Procedure ended. 10:58:54 Full Disclosure recording stopped 10:59:04 ACC-PCI Only Patient was given prescriptions, or instructed by Kevin Croft MD to start/continue the following medications upon discharge: Plavix 10:59:06 End room use (Document Last) 10:59:17 End room use (Document Last) 11:00:02 End room use (Document Last) Intervention Summary Intervention Notes Time ActionType Lesion and Equipment Action# Pressure Duration Attributes Used 10:41:58 Inflate Mid CX EUPHORA 2.0 1 13 00:00 balloon x 15 Balloon ([id number]) 10:42:16 Reinflate Mid CX EUPHORA 2.0 2 13 00:00 balloon x 15 Balloon ([id number]) 10:45:42 Inflate Mid CX EUPHORA 1.5 3 21 00:00 balloon x 20 Balloon ([id number]) 10:46:15 Inflate Mid CX Mozec Rx 2.5 4 13 00:00 balloon x 20 balloon 10:46:18 Reinflate Mid CX Mozec Rx 2.5 5 17 00:00 balloon x 20 balloon 10:48:22 [address] stent Mid CX INTEGRITY RX 6 17 00:00 2.5 x 22 stent ([id number]) Device Usage Item Name Manufacture Quantity Catalog Number Hospital Part Current Min imal Lot# / Charge Number Stock Stock Serial# Code ACIST Syringe Acist 1 29063 099959 666373 [id number] 20 (14304) Medical Systems Inc Bag Decanter Microtek 1 2001S 142909 98590 960359 5 () Medical Inc. Medline Cath Medline 1 [id number] 594098 68258 200102 5 Pack ([id number]) ACIST Hand Acist 1 01545 456946 776472 016352 5 Control Medical (71385) Systems Inc ACIST Acist 1 70545 249138 506350 096356 5 Manifold Medical (27895) Systems Inc DIAGNOSTIC Cardinal 1 DQ3146 219846 59510 888041 30 Multipack 5Fr Health catheter set (OD5804) EXOSEAL 5Fr Cardinal 1 EX500 578347 427499 530023 10 (EX500) Health EMERALD Guide Cardinal 1 502-455 091934 356622 522078 5 Wire Health (502-455) MULTIPACK Cardinal 1 689579 5 Pigtail 5 Fr Health catheter MULTIPACK JL Cardinal 1 304839 5 4.0 5Fr Health catheter GUIDE 6FR JL Medtronic 1 [id number] 461356 73637 157527 1 5.0 catheter (VP7PO95) MULTIPACK Cardinal 1 281430 5 3DRC 5Fr Health catheter SHEATH 6FR Terumo 1 QCI205 927304 209733 016159 40 [place] (QRN401) INFLATOR Merit 1 KK8788 316995 680434 708465 15 P4RC Medical BasixCompak (RR4327) GUIDE 6FR EBU Medtronic 1 UF8VZX36 311692 33115 753579 0 5.0 catheter (PC0DHI66) CHOICE PT [place] 1 [id number] 997559 856139 490954 5 Extra Support Scientific 182cm wire ([id number]) WHISPER 190cm Lam[place] 1 [id number] 995467 385034 484522 5 wire Vascular ([id number]) FIELDER XT J [facility] Intecc 1 [id number] 569896 913406 678916 5 300cm guide wire ([id number]) EUPHORA 2.0 x Medtronic 1 [id number] 820343 823479 327325 5 [id number] 15 Balloon ([id number]) EUPHORA 1.5 x Medtronic 1 [id number] 918587 870320 569891 5 [id number] 20 Balloon ([id number]) Mozec Rx 2.5 Cardinal 1 [id number] 091151 06838 324246 5 UMOE14 x 20 balloon Health INTEGRITY RX Medtronic 1 [id number] 294426 605956 968834 5 [id number] 2.5 x 22 stent ([id number]) EXOSEAL 6Fr Cardinal 1 EX600 982995 430437 087296 10 (EX600) Health SuperCross Vascular 1 5304 170917 286312 278560 5 Microcatheter Solutions 90 angle (5304) Signature Audit [place] Stage Time Signature Unsigned Intra-Procedure 06/10/2019 Liz Ortega 10:59:17 AM RT(R) Intra-Procedure 06/10/2019 Aguila 11:00:02 AM Rosenda GONZALES Intra-Procedure 06/10/2019 Kevin Croft 11:00:34 AM [facility] [address] [place] [address]
[~2019-06-10 08:20] MED LIST changes: +BAYER CHEWABLE81 MG PO; +CARAFATE1 G PO; +CILOSTAZOL100 MG PO; +PROTONIX40 MG PO; +ZYLOPRIM100 MG PO
[2019-06-10] MEDS ORDERED: BAYER CHEWABLE81 MG PO (08:39)
[2019-06-10] MEDS ORDERED: PACERONE200 MG PO (08:39)
[2019-06-10] MEDS ORDERED: CILOSTAZOL100 MG PO (08:40)
[2019-06-10] MEDS ORDERED: LASIX40 MG PO (08:41)
[2019-06-10] MEDS ORDERED: ISOSORBIDE DINI30 MG PO (08:43)
[2019-06-10 08:59] VITALS: BP 122/51; Ht 172.7 cm; Wt 81.8 kg
[2019-06-10 09:07] LABS: BASOPHILS 0.1 % (0-2); EOSINOPHILS 0 % (0-7); HEMATOCRIT 33.8 % (42.0-54.0); HEMOGLOBIN 10.4 g/dL (13.5-17.5); IMMATURE GRANULOCYTES 0.2 % (0-5); LYMPHOCYTES 9.4 % (15-50); MCH 28.3 pg (26.0-34.0); MCHC 30.8 g/dL (31.0-37.0); MCV 92.1 fL (80.0-100.0); MEAN PLATELET VOLUME 9.7 fL (7.4-10.4); MONOCYTES 8.6 % (2-11); NEUTROPHILS 81.7 % (40-80); RBC 3.67 10x6/uL (4.20-6.10); RDW 16.8 % (11.5-14.5); WBC 9.4 10x3/uL (4.8-10.8)
[2019-06-10 09:09] LABS: PLATELET COUNT 175 10x3/uL (130-400)
[2019-06-10 09:26] LABS: ANION GAP 12.1 mmol/L (8-16); CALCIUM 9.3 mg/dL (8.5-10.1); CARBON DIOXIDE 28.8 mmol/L (21.0-32.0); CHOL - HDL RATIO 2.2 ratio (2.3-4.9); CREATININE - SERUM 1.9 mg/dL (0.6-1.3); POTASSIUM - SERUM 3.9 mmol/L (3.5-5.1)
--- NOTE | 2019-06-10 11:11 | NUR ---
PT ARRIVED BY STRETCHER. PLACED ON MONITORS. ASSESSMENT COMPLETED. VSS AT THIS TIME. FAMILY AT BEDSIDE.
--- NOTE | 2019-06-10 11:15 | NUR ---
NS INFUSING AT 100CC/HR TO PIV PER MD ORDERS VIA PUMP
--- NOTE | 2019-06-10 11:26 | NUR ---
PT RESTING COMFORTABLY. VSS. RIGHT GROIN DRESSING C/D/I. NO S/S OF HEMATOMA NOTED. CALL LIGHT WITHIN REACH. PT VOIDED 200cc OF YELLOW URINE IN URINAL WITHOUT DIFFICULTY. DR. COBB ROUNDED AND SPOKE WITH PT AND PT'S FAMILY.
[2019-06-10] MEDS ORDERED: PLAVIX75 MG PO (11:38)
--- NOTE | 2019-06-10 11:55 | NUR ---
RIGHT GROIN DRESSING C/D/I. NO S/S OF HEMATOMA NOTED. CALL LIGHT WITHIN REACH. VSS AT THIS TIME. NO OTHER NEEDS AT THIS TIME. WILL CONTINUE TO MONITOR.
--- NOTE | 2019-06-10 12:30 | NUR ---
PT RESTING COMFORTABLY. VSS. CALL LIGHT WITHIN REACH. PT STILL IN SUPINE POSITION. RIGHT GROIN DRESSING C/D/I. NO S/S OF HEMATOMA NOTED. RIGHT PEDAL PULSE PALPABLE.
--- NOTE | 2019-06-10 13:09 | NUR ---
RIGHT GROIN DRESSING C/D/I. NO S/S OF HEMATOMA NOTED. CALL LIGHT WITHIN REACH. VSS AT THIS TIME. PT RESTING COMFORTABLY. NO NEEDS AT THIS TIME.
--- NOTE | 2019-06-10 14:00 | NUR ---
RIGHT GROIN DRESSING C/D/I. NO S/S OF HEMATOMA NOTED. CALL LIGHT WITHIN REACH. HEAD OF BED INC TO 30 DEGREES. TOLERATED WELL. SET UP WITH SANDWICH TRAY AND DRINK. FAMILY AT BEDSIDE.
--- NOTE | 2019-06-10 14:30 | NUR ---
RIGHT GROIN DRESSING C/D/I. NO S/S OF HEMATOMA NOTED. PT'S O2 SAT 93% ON ROOM AIR.
--- NOTE | 2019-06-10 14:45 | NUR ---
PIV D/C'D WITH CATH TIP INTACT. PT TOLERATED WELL. RIGHT GROIN DRESSING C/D/I. NO S/S OF HEMATOMA NOTED. INSTRUCTED PT TO GET UP AND DRESSED. FAMILY AT BEDSIDE TO ASSIST.
--- NOTE | 2019-06-10 14:55 | NUR ---
DISCUSSED DISCHARGE INSTRUCTIONS WITH PT AND PT'S FAMILY. THEY VOICED UNDERSTANDING.
--- NOTE | 2019-06-10 15:10 | NUR ---
PT VOIDED 750cc OF URINE IN URINAL. PT TAKEN OUT TO VEHICLE BY WHEELCHAIR. NO S/S OF DISTRESS NOTED. ALL BELONGINGS AND PAPERWORK IN HAND.
--- NOTE | 2019-06-11 14:04 | OP ---
PATIENT NAME: SVEN PIERRE MEDICAL RECORD: [id number] :38 LOCATION:D.CAT ADMISSION DATE: SURGEON: JOAN COBB MD DATE OF OPERATION: 06/10/2019 DATE OF SERVICE: 06/10/2019 PROCEDURES: 1. PTCA stent left circumflex. 2. Left heart catheterization. 3. Selective coronary angiography. 4. Left ventriculogram. INDICATION: Angina and coronary artery disease. PROCEDURE IN DETAIL: After informed consent was obtained and after a detailed description of the risks, benefits as well as alternative therapies, the patient elected to proceed with angiogram and angioplasty. The right femoral area was prepped and draped in normal sterile fashion. Right femoral artery was cannulated via modified Seldinger technique with placement of 6-[place] sheath. All catheters exchanged through this sheath. FINDINGS: Left ventriculogram was performed in the standard 30-degree PINA view, reveals global hypokinesis, ejection fraction in the 35% range. SELECTIVE CORONARY ANGIOGRAPHY: 1. 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 2. Left anterior descending has mild irregularities, but no flow-limiting stenosis. 3. The left circumflex has 99% stenosis in the proximal mid vessel. PTCA STENT OF THE LEFT CIRCUMFLEX: We were able to traverse the subtotal occlusion with 1.5, 2.0 and 2.5 balloon. Stenting with a 2.5 x 22 mm Integrity stent. Result was 0% residual stenosis. OVERALL IMPRESSION: Successful percutaneous transluminal coronary angioplasty stent of the left circumflex going from 99% initial stenosis to 0% residual. TRANSINT:[id number] Voice Confirmation ID: [id number] DOCUMENT ID: [id number] JOAN COBB MD at 1404 CC: [id number] DICTATION DATE: 06/10/19 1054 [employer] SUPERVISOR: 06/10/19 1319 DEP CLI 06/10/19 [place] [address]
== END 2019-06-10 15:10 | disposition home or self-care (01) ==
LOC: D.CATH 08:20
PROVIDERS: ATTEND Internal Medicine Interventional Cardiology
DX: I25.119 Atherosclerotic heart disease of native coronary artery with unspecified angina pectoris (principal); R07.9 Chest pain, unspecified; E78.5 Hyperlipidemia, unspecified; R06.09 Other forms of dyspnea; I48.0 Paroxysmal atrial fibrillation; I10 Essential (primary) hypertension; I05.9 Rheumatic mitral valve disease, unspecified; I36.8 Other nonrheumatic tricuspid valve disorders; I71.4 Abdominal aortic aneurysm, without rupture